=== PATIENT | male | born 1955 | race Caucasian/White ===

== ENCOUNTER → 2018-02-07 | Outpatient (CLI) | payer BC | LOC: FIMAGING 07:55 | PROVIDERS: ATTEND Physician Assistant | DX: M51.36 Other intervertebral disc degeneration, lumbar region (principal); M47.896 Other spondylosis, lumbar region; M51.27 Other intervertebral disc displacement, lumbosacral region ==

== ENCOUNTER 2018-04-14 10:30 | Emergency (ER) | payer BC ==
[2018-04-14 10:36] VITALS: BP 129/86
--- NOTE | 2018-04-14 10:58 | EDPHY ---
H & P Stated Complaint: left knee injury Time Seen by Provider: 04/14/18 10:39 HPI/ROS: Chief Complaint: Left leg pain HPI: The patient presents to the ED for evaluation of left leg pain. The patient had a fall last week while [place]k hunting. The patient sustained an impact injury to the lateral aspect of his left lower leg. He did developed knee pain following that event. He was seen at a hospital and had x-rays which demonstrate no evidence of an acute fracture. He has continued to have mild intra-articular swelling involving the left knee and was concerned about the possibility of compartment syndrome in his leg prompting his visit to the ED today. The patient is scheduled to see an orthopedic surgeon tomorrow for evaluation of a possible intra-articular injury to the knee. REVIEW OF SYSTEMS: Neuro: no headache, numbness, weakness Musculoskeletal: as above Skin: no abrasion or lacerations Source: Patient Exam Limitations: No limitations - Personal History Current Tetanus Diphtheria and Acellular Pertussis (TDAP): Yes - Medical/Surgical History Hx Asthma: No Hx Chronic Respiratory Disease: No Hx Diabetes: No Hx Cardiac Disease: No Hx Renal Disease: No Hx Cirrhosis: No Hx Alcoholism: No Hx HIV/AIDS: No Hx Splenectomy or Spleen Trauma: No Other PMH: PMH:none. PSH:hernia, dental - Social History Smoking Status: Never smoked - Physical Exam Exam: General Appearance: Alert, no distress Skin: No lacerations, No abrasion Extremities: Mild ecchymoses noted below the left knee with slight tenderness in the soft tissues. His compartments are soft and supple without evidence of a compartment syndrome. Patient does have a slight left knee effusion. Neurological: Neurologically intact in the left lower extremity Vascular: 2+ dorsalis pedis and posterior tibial pulses noted bilaterally Constitutional: Initial Vital Signs Temperature (C) 37.0 C 04/14/18 10:33 Heart Rate 67 04/14/18 10:33 Respiratory Rate 16 04/14/18 10:33 Blood Pressure 129/86 H 04/14/18 10:33 O2 Sat (%) 95 04/14/18 10:33 Allergies/Adverse Reactions: No Known Allergies Allergy (Unverified 09/30/14 16:22) Home Medications: Medication Instructions Recorded Oxycodone HCl 04/14/18 oxyCODONE/APAP 5/325 [Percocet 1 - 2 tab PO Q6-8PRN PRN #20 tab 04/14/18 5/325 (RX)] Medical Decision Making ED Course/Re-evaluation: The patient has been informed that I see no evidence of a compartment syndrome. He certainly could have an intra-articular injury of the knee which he is scheduled to see an orthopedic surgeon for tomorrow. At this point time I will advise continued elevation, rest, ice and crutch use as needed. Departure - Departure Disposition: Home, Routine, Self-Care Clinical Impression: Left knee sprain Condition: Good Instructions: Knee Sprain (ED) Additional Instructions: 1. Take Ibuprofen or Motrin 600 mg by mouth three times a day. 2. Percocet as needed for severe pain 3. Ice as directed 4. Continue crutches as needed. Elevate at night. 5. Follow up tomorrow with Orthopedic surgery as scheduled. Referrals: Sara Randle MD [Primary Care Provider] - As per Instructions
== END 2018-04-14 11:04 | disposition home or self-care (01) ==
DX: S83.92XA Sprain of unspecified site of left knee, initial encounter (principal); W19.XXXA Unspecified fall, initial encounter; Y92.828 Other wilderness area as the place of occurrence of the external cause